=== PATIENT | female | born 1970 | race Caucasian/White ===

== ENCOUNTER 2022-01-03 10:45 | Emergency (ER) | payer BC, SELFPAY ==
[2022-01-03 10:53] VITALS: BP 147/83; PULSE 76; RESP 20; TEMP 36.9; O2SAT 100
--- NOTE | 2022-01-03 11:02 | ED.LOWEXIN ---
HPI - Extremity Injury (Lower) General Chief Complaint: Extremity Injury, Lower Stated Complaint: right achillies Time Seen by Provider: 01/03/22 11:00 Source: patient Mode of arrival: ambulatory Limitations: no limitations History of Present Illness HPI Narrative: Ms. High is a 51-year-old female patient presenting to the clinic today with complaints of right Achilles pain. She reports that she has been working with physical therapy for her right-sided Achilles tendinitis. States yesterday her therapist wanted her to run to see how her Achilles was healing. Patient states she took off to run and fell down. She denies hearing any pop however she had instant pain to her Achilles and calf muscle of the right leg. States she was having more pain last night that was radiating up into her calf than today as she is currently taking diclofenac. She has full range of motion of her foot and ankle. Related Data Home Medications Medication Instructions Recorded Confirmed diclofenac sodium 75 mg PO BID 01/03/22 01/03/22 diclofenac sodium See Rx Instructions .ROUTE .COMPLEX 01/03/22 01/03/22 escitalopram oxalate 10 mg PO DAILY 01/03/22 01/03/22 Allergies Allergy/AdvReac Type Severity Reaction Status Date / Time No Known Allergies Allergy Verified 01/03/22 11:11 Review of Systems Review of Systems: Pertinent positives per HPI. Patient denies any fever, chills, rash, headache, visual changes, dizziness, cough, runny nose, sore throat, shortness of breath, chest pain, palpitations, nausea, vomiting, diarrhea, constipation, abdominal pain, or any urinary issues. PMFSH Comments At the time of my signature, I reviewed and agree with the nursing past medical, surgical, social, and family history. There is no relevant family history pertinent to the patient complaint. Exam Narrative: General: Well-developed, well nourished, in no apparent distress Head: Normocephalic, atraumatic. Cardio: Regular rate and rhythm, s1 and s2 normal, no murmur appreciated. Resp: Clear to auscultation bilaterally, no rhonchi, rales, wheezing or rubs. Musculoskeletal: No deformity, mild pain to palpation over the Achilles and mid calf, grossly normal range of motion, muscle strength strong and equal, able to dorsiflex and plantar flex right foot against resistance with very minimal pain ,peripheral pulse strong, no edema, no cyanosis, normal gait and station Course Course Emergency Course: Portions of this record may have been created with voice recognition software. Level of Care: Express Care Visit Vital Signs Vital signs: Vital Signs Temperature 36.9 C 01/03/22 10:53 Pulse Rate 76 01/03/22 10:53 Respiratory Rate 20 01/03/22 10:53 Blood Pressure 147/83 H 01/03/22 10:53 Pulse Oximetry 100 01/03/22 10:53 Temperature 36.9 C 01/03/22 10:53 Pulse Rate 76 01/03/22 10:53 Respiratory Rate 20 01/03/22 10:53 Blood Pressure 147/83 H 01/03/22 10:53 Pulse Oximetry 100 01/03/22 10:53 Vital signs reviewed MDM - Extremity Injury (Lower) MDM Narrative Medical decision making narrative: Upon assessment of patient,she is sitting in exam chair with her sock and shoe off. Has pain over the Achilles tendon and states that pain last night was radiating up into her mid calf. She is able to dorsiflex and plantarflex her right foot against resistance with good strength. Has minimal pain with doing this. I do not feel that she has ruptured her Achilles tendon but most likely has strained it. She was given supportive measures to complete and to complete light stretching. Follow-up with physical therapy on Thursday for further eval. Discharge Plan Discharge Clinical Impression: Strain of Achilles tendon Qualifiers: Encounter type: sequela Laterality: right Qualified Code(s): S86.011S - Strain of right Achilles tendon, sequela Patient Disposition: Home, Self-Care Condition: Stable Instructions: Antibiotic Form, Muscle Strai
== END 2022-01-03 11:15 | disposition home or self-care (01) ==
PROVIDERS: Emergency Provider Nurse Practitioner Family
DX: S86.011A Strain of right Achilles tendon, initial encounter (principal); X50.0XXA Overexertion from strenuous movement or load, initial encounter; Y93.02 Activity, running; R01.1 Cardiac murmur, unspecified; F41.9 Anxiety disorder, unspecified
CPT/HCPCS: 99212; G0463